=== PATIENT | female | born 1970 | race Caucasian/White ===

== ENCOUNTER 2017-09-09 11:47 | Observation (INO) | payer OTHER ==
[2017-09-09] MEDS ORDERED: ALUM & MAG HYDROX-SIMETHICONE 30 ML, LIDOCAINE VISCOUS 2% 15 ML PO ONE ×2 (12:17)
[2017-09-09] MEDS ORDERED: LIDOCAINE HCL 2% (MOUTH-THROAT) 15 ML UD ONE (12:23)
[2017-09-09] MEDS ORDERED: ALUM & MAG HYDROX-SIMETHICONE 30 ML UD ONE (12:23)
--- NOTE | 2017-09-09 13:08 | RAD ---
EXAM DESCRIPTION: Chest,2 Views CLINICAL HISTORY: palpitations COMPARISON: None FINDINGS: Two-view chest x-ray shows cardiomediastinal silhouette and pulmonary vasculature to be within normal limits. The lungs are normally aerated and clear. Costophrenic angles are sharp. Mild disc degenerative changes of the spine are seen. IMPRESSION: No radiographic evidence of acute cardiopulmonary disease. Electronically signed by: Yaniv Stoner MD 09/09/2017 1:06 PM CDT
[2017-09-09] MEDS ORDERED: PANTOPRAZOLE SODIUM IV 40 MG VIAL IV ONE (13:53)
[2017-09-09] MEDS ORDERED: SUCRALFATE 1 GM/10 ML 1 GM UD PO ONE (13:53)
[2017-09-09] MEDS ORDERED: ASPIRIN TABLET 325 MG TAB PO ONE (13:53)
--- NOTE | 2017-09-09 13:57 | ED.PDOC ---
History of Present Illness - General Chief Complaint: Chest Pain/NV Stated Complaint: chest pain Time Seen by Provider: 09/09/17 11:53 Source: patient Exam Limitations: no limitations - History of Present Illness Initial Comments: the patient is a 47-year-old female presenting to the emergency room secondary to a feeling of palpitations and shortness of breath. No real chest pain. The patient reports that the palpitations have been off and on for the last year but it got a little worse over the last 3 months and got significantly worse last night. She does have a history of gastroesophageal reflux disease for which she is not taking any daily medications. She has apparently seen cardiology in the past with some form of unknown tachycardia but it has been several years since she has been seen by them. She is not on any cardiac medications. She has never been on any beta bridget or calcium channel bridget that she knows of. She is not on any blood thinners. Even though she is feeling the palpitations and shortness of breath she is satting greater than 98% on room air and her heart rate on telemetry appears steady at around 70-80 bpm. She has not thrown up any. No fevers. No abdominal pain. No pain with movement. No dizziness. She does have significant anxiety and this is making her anxious making her having tingling in her hands and feet and around her mouth. Timing/Duration: unsure Severity: moderate Improving Factors: nothing Worsening Factors: nothing Associated Symptoms: malaise, shortness of breath Allergies/Adverse Reactions: Allergies Codeine Allergy (Verified 09/09/17 12:17) Fluorescein Allergy (Verified 09/09/17 12:18) Sulfa Antibiotics Allergy (Verified 09/09/17 12:18) Review of Systems - Review of Systems Constitutional: States: no symptoms reported EENTM: States: no symptoms reported Respiratory: States: short of breath Cardiology: States: palpitations. Denies: chest pain, edema, syncope Gastrointestinal/Abdominal: States: no symptoms reported Genitourinary: States: no symptoms reported Musculoskeletal: States: no symptoms reported Skin: States: no symptoms reported Neurological: States: see HPI, anxiety Endocrine: States: no symptoms reported All other Systems: No Change from Baseline Past Medical History (General) - Patient Medical History Hx Cardiac Disorders: Yes - tachycardia, "valve problem" Hx Gastroesophageal Reflux: Yes - Vaccination History Hx Influenza Vaccination: No Hx Pneumococcal Vaccination: No - Social History Hx Tobacco Use: No Hx Alcohol Use: Yes - wine Family Medical History - Family History Mother Family History: Unknown Physical Exam - Physical Exam General Appearance: Alert, Anxious Eye Exam: bilateral normal Ears, Nose, Throat: hearing grossly normal, normal ENT inspection, normal pharynx Neck: full range of motion, supple, normal inspection Respiratory: lungs clear, normal breath sounds, no respiratory distress, no accessory muscle use Cardiovascular/Chest: normal peripheral pulses, regular rate, rhythm, no edema Peripheral Pulses: radial,right: 2+, radial,left: 2+, dorsalis pedis,right: 2+, dorsalis pedis,left: 2+ Gastrointestinal/Abdominal: normal bowel sounds, non tender, soft Rectal Exam: deferred Back Exam: normal inspection, no CVA tenderness Extremity: non-tender, normal inspection, no pedal edema, normal capillary refill Neurologic: lens silverer II-XII nml as tested, alert, oriented x 3, other - severely anxious Skin Exam: normal color Comments: EKG shows a normal sinus rhythm at 70 bpm. Normal axis. Normal QT interval. Mild left atrial dilation. Normal R-wave progression. Chest x-ray shows no acute pathology. No evidence of fluid overload. No pneumothorax or infiltrate. Vital Signs - 24 hr 09/09/17 09/09/17 11:52 12:48 Temperature 99.2 F Pulse Rate [ 68 63 pulse ox] Respiratory 20 16 Rate Blood Pressure 136/84 113/64 [Left Arm] O2 Sat by Pulse 100 99 Oximetry Laboratory Results - last 24 hr 09/09/17 09/09/17 09/09/17 12:00 12:00 12:00 WBC 5.7 RBC 4.45 Hgb 14.1 Hct 41.0 MCV 92.2 MCH 31.7 H MCHC 34.4 RDW 12.7 Plt Count 216 MPV 8.3 Absolute Neuts (auto) 3.10 Absolute Lymphs (auto) 2.00 Absolute Monos (auto) 0.50 Absolute Eos (auto) 0.10 Absolute Basos (auto) 0.00 Neutrophils % 54.3 Lymphocytes % 35.6 Monocytes % 8.7 Eosinophils % 0.9 L Basophils % 0.5 PT 12.0 INR 1.030 PTT (SP) 30.2 D-Dimer, Quantitative < 230 Sodium 138 Potassium 3.5 L Chloride 107 Carbon Dioxide 22 Anion Gap 12.5 BUN 17 Creatinine 0.64 BUN/Creatinine Ratio 26.6 H Random Glucose 84 Serum Osmolality 276.4 Calcium 9.3 Magnesium 1.9 Total Bilirubin 0.6 AST 16 ALT 20 Alkaline Phosphatase 63 Creatine Kinase 56 CK-MB (CK-2) 1.3 CK-MB (CK-2) % Not Reportable Troponin I 0.06 H B-Natriuretic Peptide 16.2 Serum Total Protein 7.4 Albumin 4.5 Globulin 2.9 Albumin/Globulin Ratio 1.6 TSH 1.58 Urine Color Urine Appearance Urine pH Ur Specific [place] Urine Protein Urine Glucose (UA) Urine Ketones Urine Blood Urine Nitrite Urine Bilirubin Urine Urobilinogen Ur Leukocyte Esterase Urine RBC Urine WBC Ur Epithelial Cells Urine Bacteria Urine HCG, Qual 09/09/17 09/09/17 12:40 12:40 WBC RBC Hgb Hct MCV MCH MCHC RDW Plt Count MPV Absolute Neuts (auto) Absolute Lymphs (auto) Absolute Monos (auto) Absolute Eos (auto) Absolute Basos (auto) Neutrophils % Lymphocytes % Monocytes % Eosinophils % Basophils % PT INR PTT (SP) D-Dimer, Quantitative Sodium Potassium Chloride Carbon Dioxide Anion Gap BUN Creatinine BUN/Creatinine Ratio Random Glucose Serum Osmolality Calcium Magnesium Total Bilirubin AST ALT Alkaline Phosphatase Creatine Kinase CK-MB (CK-2) CK-MB (CK-2) % Troponin I B-Natriuretic Peptide Serum Total Protein Albumin Globulin Albumin/Globulin Ratio TSH Urine Color Yellow Urine Appearance Clear Urine pH 7.0 Ur Specific [place] 1.020 Urine Protein Negative Urine Glucose (UA) Negative Urine Ketones Negative Urine Blood Negative Urine Nitrite Negative Urine Bilirubin Negative Urine Urobilinogen 0.2 Ur Leukocyte Esterase Negative Urine RBC 0 Urine WBC 0 Ur Epithelial Cells 1-3 Urine Bacteria 0 Urine HCG, Qual Negative Progress - Progress Progress: 09/09/17 14:00 The patient's 47-year-old female presenting to the emergency room with a sensation of palpitations and shortness of breath. Anxiety is no doubt contributing to the symptoms. So far the patient has been monitored and no evidence of any arrhythmia has been noted. Given her diagnosis previously however I do want to watch the patient for a more extended period of time to make sure she is truly not having any significant tachycardic arrhythmia that we have not yet picked up. Initial set of cardiac enzymes shows a troponin of 0.06 however the CK and CK-MB are negative and the patient is pain-free. She is going to be receiving a dose of aspirin and a dose of Lovenox for now. Symptoms are most likely coming from esophageal irritation given her history of untreated reflux. The patient is being dose of Carafate and Protonix. Admit for monitoring overnight and extended rule out. Vital signs and been reassuring. The patient is oxygenating well. Symptoms have improved since the GI cocktail. Admit for further monitoring. Departure - Departure Clinical Impression: Palpitations, Anxiety Disposition: Admit Patient Decision To Admit - Decistion To Admit Decision to Admit Reason: Medical Nature Decision to Admit Date: 09/09/17 Decision to Admit Time: 14:02
[2017-09-09] MEDS ORDERED: ENOXAPARIN SODIUM 80 MG/0.8 ML SYG SUBCU ONE (14:05)
--- NOTE | 2017-09-09 14:40 | HP ---
SUPERVISING PHYSICIAN: Marbin Diaz M.D. CHIEF COMPLAINT: Chest pain. HISTORY OF PRESENT ILLNESS: Ms. Angeles is a 47 year-old female patient that presented to the Emergency Room today after she started having some palpitations and some shortness of breath. She denied any consistent chest pains but noted that she had some "heaviness." She has also noted that she has had multiple episodes in the past where she felt like she was having rapid heart rates, but in the last 3 months this has slowly worsened to the point where it was worse last night. She also has a significant history of gastroesophageal reflux disease but is not taking any current medications. She has attempted to see a supervisor public message service in regards to the palpitations but has not actually seen one in several years and is not currently on any medications for rate control. She has never been on any rate control medications, including calcium channel blockers or beta blockers. It was noted in the E. R. that she was reporting palpitations but the bedside satellite project site monitor was showing 70 to 80 [id number]. EKG 12-lead showed normal sinus rhythm with no ST or T wave changes. Initial laboratory studies showed cardiac enzymes to be just slightly elevated at 0.06 with a repeat at 6 hours being normal baseline. Her BNP was normal. All other labs showed to be within normal limits except for a low potassium at 3.5. Chest x-ray showed no acute pathology. No fluid overload, pneumothorax or infiltrates. She also has a history of seizures for which she takes Topamax. Reports her last seizure was within the last month, but she does not have any tonic-clonic type seizures. Given that she is having palpitations and some shortness of breath, and has reported having had several episodes in the past that she reports as palpitations with concerns for tachycardic arrhythmias, the patient is going to be placed in Observation for further cardiac monitoring and rule out of acute myocardial infarction. It is noted that although her troponin was just 1 point above normal baseline while CK and CK-MB were negative initially and the patient was pain free. Initially in the E. R. she was given aspirin and Lovenox 1 mg per kg as well as Carafate and Protonix. The patient was placed in Observation in stable condition. PAST MEDICAL HISTORY: 1. Epilepsy. 2. Gastroesophageal reflux disease. PAST SURGICAL HISTORY: 1. Four sections. 2. Breast implants bilateral. 3. Bilateral foot and knee surgeries. 4. Tubal ligation. HOME MEDICATIONS: 1. Klonopin 0.25 mg p.r.n. 2. Omeprazole 40 mg daily. 3. Topiramate 200 mg b.i.d. ALLERGIES: CODEINE, FLUORESCEIN AND SULFA ANTIBIOTICS. FAMILY HISTORY: Father has history of tachycardia as well as diabetes. Mother has a history of hypertension. SOCIAL HISTORY: The patient has recently and moved to [place]. 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 She notes that she has never used tobacco and she only drinks alcohol which usually is wine 1/2 to 1 glass on a daily basis. She denies any illicit drug use. REVIEW OF SYSTEMS: CONSTITUTIONAL: Denies any fevers, chills, aches. HEENT: No reported nasal congestion, sore throats, ear aches. RESPIRATORY: As noted in History of Present Illness, shortness of breath associated with palpitations but no exertional dyspnea. No wheezing or coughing. CARDIOVASCULAR: As noted in History of Present Illness, palpitations. Denies any chest pains. Describes more heaviness. No edema. No syncopal or near syncopal episodes. GASTROINTESTINAL: Has history of gastroesophageal reflux disease but denies any nausea, vomiting, diarrhea or abdominal pains. GENITOURINARY: Denies any dysuria, hematuria, polyuria or other urinary symptoms. NEUROLOGIC: As noted in History of Present Illness, history of epilepsy and anxiety for which she is not taking any medications. PHYSICAL EXAMINATION: VITAL SIGNS: Temperature 98.2, pulse 61, blood pressure 119/79, respirations 16 , satting 99% on room air. Admission weight is 65.9 kg. GENERAL: On the Medical/Surgical floor, the patient appears somewhat anxious but comfortable in no obvious acute distress. She is alert. Denies any chest pains. HEENT: Tympanic membranes are clear bilaterally. Oropharynx was pink and moist without any lesions. NECK: Supple, non-tender with full range of motion. No jugular venous distention. CHEST: Lungs are clear to auscultation bilaterally without any rhonchi, wheezing or rales. CARDIOVASCULAR: Regular rate and rhythm without appreciable murmurs, gallops, or rubs. ABDOMEN: Soft, non-tender with positive bowel sounds. EXTREMITIES: No clubbing, cyanosis or edema. NEUROLOGIC: Cranial nerves II-XII are grossly intact. She is alert and oriented times three. She is anxious. LABORATORY: CBC shows white count on admission was 5,700, hemoglobin 14.1, hematocrit 41.0, platelet count 216,000. Differential showed to be within normal limits without a left shift. Coagulation studies showed normal PT, PTT and D-dimer. Chemistries showed just a slightly low potassium at 3.5, otherwise electrolytes were within normal limits. BUN 17, creatinine 0.64, glucose 84, calcium 9.3, magnesium 1.9. All liver function were normal and within normal limits. Troponin was 0.06 initially with a normal CK at 56 and CK -MB of 13. BNP was 16.2, TSH normal at 1.58. Urinalysis showed to be within normal limits. Urine HCG was negative. RADIOLOGY: Chest x-ray in the Emergency Department per radiology interpretation showed no radiographic evidence of acute cardiopulmonary disease. Initial 12-lead EKG in the Emergency Department showed normal sinus rhythm without any ST or T wave changes. Rate was 70 [id number]. ASSESSMENT: 1. Chest pain rule out with palpitations, yet with a normal sinus rhythm. 2. Electrolytes imbalance with mild Hypokalemia. 2. Anxiety with possible frequent panic attacks possibly contributing to #1 with a normal TSH and not currently on any antidepressants or anti-anxiety medications other than p.r.n. Klonopin. 3. Epilepsy on Topamax. PLAN: The patient is going to be placed in Observation tonight to have further cardiac telemetry monitoring to further rule out any abnormal rhythms. Will have cardiac enzymes every 6 hours times 2 more sets along with EKGs. She was given Lovenox 1 mg per kg in the E. R. This will be continued every 12 hours until discharge. Will will replace her potassium with IV infusion of 1/2 Normal Saline with 20 Meq Potassium. She was given aspirin in the Emergency Department prior to admission. Will anticipate length of stay to be 1 to 2 days. She will have her home medications restarted once those have been updated and verified in the electronic medical records. Again, anticipate discharge tomorrow and certainly if she has any recurrence of chest pains or anything changes clinically, will look to transfer the patient for cardiology consultation. If not, the patient will be discharged to have followup with cardiology and primary care physician once discharged. #[id number] [facility]
[2017-09-09] MEDS ORDERED: MORPHINE SULFATE INJ 10 MG/ML VIAL IV PRN (15:14)
[2017-09-09] MEDS ORDERED: NITROGLYCERIN 0.4 MG 25 EA TAB SL PRN (15:14)
[2017-09-09] MEDS ORDERED: ACETAMINOPHEN 325 MG TAB PO PRN (15:14)
[2017-09-09] MEDS ORDERED: SODIUM CHLORIDE 0.9% (FLUSH) 10 ML SYG IV PRN (15:14)
[2017-09-09] MEDS ORDERED: IV SET AND CAP CHANGE INJ INJ SCH (15:30)
--- NOTE | 2017-09-09 15:47 | PCM.CORE ---
Physician DVT/VTE - Nurse DVT Assessment & Total Each Risk Factor Represents 1 Point: Age 41-60 Each Risk Factor is 1 Point: Obesity (BMI >25) DVT Assessment Score: 2 - 2 Moderate Risk Treatments: Early Ambulation *, Sequential Compression Device Pharmacological: Enoxaparin 40mg SQ Daily
[2017-09-09] MEDS: KCL 20MEQ/0.45% NS 1,000 ML IVS PRN (19:43)
[2017-09-09] MEDS ORDERED: SODIUM CHLORIDE 0.9% (FLUSH) 10 ML SYG IV SCH (21:00)
[2017-09-10] MEDS: ENOXAPARIN SODIUM 80 MG/0.8 ML SYG SUBCU SCH ×2 (01:10→13:06)
[2017-09-10] MEDS ORDERED: PANTOPRAZOLE SODIUM TAB 40 MG PO SCH (06:30)
[2017-09-10] MEDS: KCL 20MEQ/0.45% NS 1,000 ML IVS PRN (08:05)
[2017-09-10] MEDS ORDERED: TOPIRAMATE 25 MG TAB PO SCH (09:00)
[2017-09-10] MEDS ORDERED: ASPIRIN TABLET 325 MG TAB PO SCH (09:00)
[2017-09-10] MEDS ORDERED: TOPIRAMATE 200 MG PO SCH ×2 (09:00)
[2017-09-10 11:01] VITALS: TEMP 97.8
[2017-09-10] MEDS ORDERED: SODIUM CHLORIDE 0.9% (FLUSH) 10 ML SYG IV ONE (12:11)
[2017-09-10 14:03] VITALS: BP 94/62; O2SAT 100
[2017-09-11] MEDS ORDERED: OMEPRAZOLE CAP 20 MG CAP PO SCH (06:30)
--- NOTE | 2017-09-11 10:13 | DS ---
SUPERVISING PHYSICIAN: Marbin Diaz MD DISCHARGE DIAGNOSIS: 1. Chest pain on admission with no evidence of acute myocardial infarction with no changes on EKG with all cardiac enzymes at baseline, uncertain etiology and needing cardiology followup. 2. Heart palpitations with no evidence of tachycardic rhythms on telemetry or EKGs, again needing cardiology followup with continued telemetry monitoring on Holter monitor at discharge. 3. Epilepsy. 4. Gastroesophageal reflux disease. 5. Hypokalemia, apparently a chronic issue. REASON FOR HOSPITALIZATION: Ms. Angeles is a 47 year-old female patient that presented to the Emergency Room on 09/09/17 after she started having some palpitations and some shortness of breath. She denied any consistent chest pains but noted that she had some "heaviness." She has also noted that she has had multiple episodes in the past where she felt like she was having rapid heart rates, but in the last 3 months this has slowly worsened to the point where it was worse the night before admission and so significant that she sought medical attention in the Emergency Room. She also has a significant history of gastroesophageal reflux disease but was not taking any medications. She had attempted to see a brand sales consultant in the past, but had not been able to secure an appointment. She has never been on any rate control medications. In the Emergency Room, she reported palpitations but the bedside equipment monitor phototypesetting was showing 70 to 80 [id number]. EKG showed normal sinus rhythm with no ST or T wave changes. Initial cardiac enzymes showed slightly elevated troponin at 0.06 with a repeat at 6 hours being normal baseline. Her BNP was normal. All other labs showed to be within normal limits except for a low potassium at 3.5. Chest x-ray showed no acute pathology, no fluid overload. She has a history of seizures for which she takes Topamax. She reports her last seizure was within the last month, but she does not have any tonic-clonic type seizures. Given that she was having palpitations reported and some shortness of breath along with heaviness and questionable chest pains and these multiple times with concerns for tachycardic rhythms, the patient was placed in Observation for further cardiac telemetry monitoring and rule out of acute myocardial infarction. She was started on Lovenox 1 mg per kg as well as Carafate and Protonix initially and placed in Observation in stable condition. LABORATORY: CBC was essentially normal with white count 5,700, platelet count 216,000. Differential within normal limits without a left shift. Coagulation studies showed normal PT, PTT and D-dimer. Chemistries showed mildly low potassium at 3.5, which was corrected with IV replacement prior to discharge with labs showing normal electrolytes with potassium 3.6. BUN and creatinine at discharge were 17 and 3.56, respectively. Calcium 8.8. She did have set of troponins that were elevated at 0.06, but this returned to baseline status within 3 hours which remained at baseline at 0.05. BNP was normal at 16.2. Lipid panel shows normal triglycerides, cholesterol, LDL and HDL. TSH was normal at 1.58. Urinalysis was unremarkable. HCG was negative on urine. MICROBIOLOGY: No specimens were submitted. RADIOLOGY: Chest x-ray in the Emergency Department per radiology interpretation showed no radiographic evidence of acute cardiopulmonary disease. Initial EKG on admission showed normal sinus rhythm without any ST or T wave changes. Repeat EKG prior to admission unchanged. HOSPITAL COURSE: Ms. Angeles was admitted as noted above on 09/09/17 for chest pain, rule out. She had no complications during her hospitalization, no recurrence of the pain, no interventions were completed. She was on Lovenox while in the hospital, but again had no recurrence of pain and had no abnormal rhythms documented or seen on telemetry. It was felt that she was clinically stable with no evidence of acute myocardial infarction and was able to followup with cardiology both with Dr. Abreu as well as primary care provider, Dr. Diaz, once discharged. PLAN: The patient was discharged on 09/10/17 with instructions to followup with Dr. Abreu and Dr. Diaz as scheduled. She actually had the cardiology followup established with Dr. Abreu on 09/18/17 at [address] Diaz after on 09/18/17 at 1345. She was instructed to increase activity as tolerated and was to wear a Holter monitor for 48 hours as directed. She was encouraged to return to the hospital should she have return of her symptoms. Diet at discharge was resume usual diet as tolerated. Activity to increase as tolerated. NEW PRESCRIPTIONS AT DISCHARGE: 1. Nitroglycerin 0.4 mg 1 sublingually every 5 minutes as needed for chest pains. 2. Aspirin 81 mg. No other medications were prescribed. All other medications prior to hospitalization were continued as previous. Condition at discharge was stable and improved. #[id number] [facility]
== END 2017-09-10 16:36 | disposition home or self-care (01) ==
LOC: ER 11:47 → EDSTATUS 11:48 → MS 14:40
PROVIDERS: ADMIT Nurse Practitioner Family; ATTEND Nurse Practitioner Family
DX: E87.6 Hypokalemia (principal); R07.89 Other chest pain; R00.2 Palpitations; G40.909 Epilepsy, unspecified, not intractable, without status epilepticus; K21.9 Gastro-esophageal reflux disease without esophagitis; R06.02 Shortness of breath; E87.8 Other disorders of electrolyte and fluid balance, not elsewhere classified; F41.9 Anxiety disorder, unspecified; Z79.899 Other long term (current) drug therapy; Z88.2 Allergy status to sulfonamides; Z88.3 Allergy status to other anti-infective agents; Z88.6 Allergy status to analgesic agent; Z88.8 Allergy status to other drugs, medicaments and biological substances; Z82.49 Family history of ischemic heart disease and other diseases of the circulatory system
CPT/HCPCS: 96365; 96366 ×2; 96372 ×2; J1650 ×3; J3480 ×2; 85379; 80048; 82553 ×3; 80053; 81025; 80061; 36415 ×5; 81001; 85025; 82550 ×3; 83735; 85730; 85610; 84443; 84484 ×3; 83880; 71046; 94760 ×3; 93225; 99285; 93005 ×4; G0378; 96375

== ENCOUNTER → 2017-09-18 | Outpatient (CLI) | payer OTHER | LOC: GMAM 16:34 | PROVIDERS: ATTEND Family Medicine | DX: E87.6 Hypokalemia (principal) ==

== ENCOUNTER → 2019-03-13 | Outpatient (CLI) | payer OTHER ==
--- NOTE | 2019-03-16 17:22 | MAM ---
EXAM DESCRIPTION: 3D Screening BILATERAL : Digital Mammography. CLINICAL HISTORY: 48 years Female SCREENING . Left breast tenderness "may be due to implant". Bilateral breast implants 2007. No personal history of breast cancer. Remote family history of breast and ovarian cancer. Menarche age 7. Childbirth ages 22. Uterine ablation duration unknown. Right breast cyst aspiration benign biopsy. No HRT. Lifetime risk of developing breast cancer (Tyrer-Cuzick model)(%): 10.3. COMPARISON: Baseline study at this facility.. No prior reports available. TECHNIQUE: Bilateral CC and MLO projection full-field images, with Mony Implant Displacement digital tomosynthesis mammographic technique. Bilateral 2-D digital full-field images, MLO and CC projections, non-displaced. Bilateral digital 2-D full-field MLO images. Implant displaced. CAD not available for tomosynthesis or 2-D images. FINDINGS: The breast parenchymal density pattern is: Heterogeneously dense breast tissue, which may obscure small masses. No skin thickening or nipple retraction. Bilateral retro-muscular saline implants. Implant capsules smooth margin where seen. Bilateral lobulated and circumscribed mass densities may represent intramammary lymph nodes. 2.5 cm from right nipple 9:30 position. 3.5 cm from left nipple 1:30 position. No , and no suspicious microcalcifications bilaterally IMPRESSION: BI-RADS CATEGORY: 0 - INCOMPLETE- Need additional imaging evaluation. FOLLOW-UP: Recall for additional imaging: Bilateral directed breast ultrasound of the regions of interest described above.. Written communication concerning the IMPRESSION and Follow-up, will be mailed to the patient and referring health care provider. Electronically signed by: Moises Damon MD 03/16/2019 5:21 PM [facility]
== END ==
LOC: MAMMO 10:00
PROVIDERS: ATTEND Family Medicine
DX: Z12.31 Encounter for screening mammogram for malignant neoplasm of breast (principal)

== ENCOUNTER → 2019-04-13 | Outpatient (CLI) | payer OTHER ==
--- NOTE | 2019-04-13 15:48 | US ---
EXAM DESCRIPTION: Breast,Bilateral: Ultrasound. CLINICAL HISTORY: 48 yearsFemaleABNORMAL MAMMOGRAM. Bilateral nodules on screening digital breast tomosynthesis. Patient has bilateral implants. COMPARISON: Bilateral screening digital breast tomosynthesis 13 March 2019. TECHNIQUE: Transcutaneous scanning of the bilateral breasts utilizing sims-scale and Doppler modes. Scanning performed by the scaffolder ; observation by Dr. Damon. FINDINGS: Scanning of the right breast 10:00 position 3 cm from the nipple. Mostly fibroids are tissues with minimal fatty tissue. Circumscribed mass with hypoechoic cortex and echogenic hilum measuring 4.3 mm with no vascular flow. Consistent with a lymph node. No posterior acoustic enhancement. Abutting the anterior capsule of the implant. Right breast implant capsule is intact where seen. Left breast scanning of the 2:00 segment of the breast 4 cm from the nipple. Mostly fibroglandular tissues with minimal fatty tissue. Circumscribed hypoechoic mass in the cortex and echogenic eccentric hilum. Wider than tall orientation and no posterior acoustic features. Hilum is vascular. Dimensions are 3.8 x 4.8 mm. Consistent with a lymph node. Second hypoechoic mass measures 4.3 x 6.0 mm with echogenic hilum and minimal vascularity. Wider than tall orientation. No posterior acoustic features. Consistent with a lymph node. Breast implant capsule is intact where seen. IMPRESSION: Benign exam. BIRAD CATEGORY: 2 BENIGN FINDINGS. RECOMMENDATIONS: FOLLOW UP: Return to routine digital bilateral mammographic screening, one year interval from March 2019. Written communication explaining the IMPRESSION and follow-up, will be mailed to the patient and referring health care provider. According to the [employer], yearly mammograms are recommended starting at age 40 and continuing as long as a woman is in good health. Any breast change noted on a breast self-exam should be reported promptly to the patient's healthcare provider. Breast MRI is recommended for women with an approximately 20-25% or greater lifetime risk of breast cancer, including women with a strong family history of breast or ovarian cancer and women who have been treated for Hodgkin's disease. A negative mammographic report should not delay tissue diagnosis in patients with significant clinical history or physical findings. Extremely dense breast tissue limits the sensitivity of digital mammography. Electronically signed by: Moises Damon MD 04/13/2019 3:46 PM [facility]
== END ==
LOC: MAMMO 08:03
PROVIDERS: ATTEND Family Medicine
DX: R92.2 Inconclusive mammogram (principal)